=== PATIENT | male | born 1945 | race African-American/Black ===

== ENCOUNTER 2019-04-26 07:38 | Emergency (ER) | payer MEDICARE, OTHER ==
[~2019-04-26] VITALS: Ht 182.9 cm; Wt 91.0 kg
[2019-04-26] MEDS ORDERED: ONDANSETRON HCL 4MG/2ML INJ IV STA (08:20)
[2019-04-26] MEDS ORDERED: MORPHINE SULFATE 4 MG/ML CPJ (NOT FOR IM USE) IV STA (08:20)
[2019-04-26 08:51] LABS: BASOPHILS % 1.3 % (0.0-2.0); EOSINOPHILS % 0.8 % (0.0-5.0); HEMATOCRIT. 39.3 % (42.0-52.0); HEMOGLOBIN. 13.2 g/dL (14.0-18.0); LYMPHOCYTES % 26.3 % (20.0-50.0); MEAN CORPUSCULAR VOLUME 89.4 fL (80.0-94.0); MEAN PLATELET VOLUME 9.2 fl (7.4-10.4); MONOCYTES % 10.9 % (2.0-8.0); NEUTROPHILS % 60.7 % (40.0-76.0); PLATELET 173 x1000/uL (130-400); RED BLOOD CELL COUNT 4.39 mill/uL (4.7-6.1); RED CELL DISTRIBUTION WIDTH 13.7 % (11.6-14.6)
[2019-04-26 08:57] LABS: CHLORIDE 107 mEq/L (98-107)
[2019-04-26 09:12] LABS: INR 1.1; PROTHROMBIN TIME 11.5 sec (9.6-11.0)
[2019-04-26] MEDS ORDERED: MORPHINE SULFATE 4 MG/ML CPJ (NOT FOR IM USE) IV ONE (09:45)
[2019-04-26 15:25] VITALS: BP 135/62
== END 2019-04-26 15:27 | disposition short-term general hospital (02) ==
LOC: ER 07:48
DX: S70.02XA Contusion of left hip, initial encounter (principal); S62.102A Fracture of unspecified carpal bone, left wrist, initial encounter for closed fracture; Z91.018 Allergy to other foods; Z98.890 Other specified postprocedural states; V03.10XA Pedestrian on foot injured in collision with car, pick-up truck or van in traffic accident, initial encounter; Y93.89 Activity, other specified; Y92.488 Other paved roadways as the place of occurrence of the external cause
CPT/HCPCS: 29125; 36415; 71045; 72192; 73110; 73502; 73700; 80053; 85025; 85610; 86850; 86900; 86901; 93005; 96374; 96375; 96376; 99285; J2270; J2405

== ENCOUNTER 2019-05-24 05:15 | Emergency (ER) | payer MEDICARE, OTHER ==
[~2019-05-24] VITALS: Ht 185.4 cm; Wt 77.0 kg
[2019-05-24 05:17] VITALS: BP 148/70
[2019-05-24] MEDS ORDERED: BACITRACIN ZINC OINT UDPKT TOP ONE (05:30)
[2019-05-24] MEDS ORDERED: TETANUS, DIPHTHERIA, PERTUSSIS VAC/PF 0.5ML (>7YR OLD) IM ONE (05:30)
[2019-05-24] MEDS ORDERED: IBUPROFEN 600MG TABLET PO ONE (05:30)
== END 2019-05-24 06:28 | disposition home or self-care (01) ==
LOC: ER 05:15
DX: S60.411A Abrasion of left index finger, initial encounter (principal); E11.9 Type 2 diabetes mellitus without complications; Z91.018 Allergy to other foods; X99.8XXA Assault by other sharp object, initial encounter; Y93.89 Activity, other specified; Y92.89 Other specified places as the place of occurrence of the external cause
CPT/HCPCS: 90471; 90715; 99283